=== PATIENT | female | born 1965 | race African-American/Black ===

== ENCOUNTER 2018-06-29 13:55 | Emergency (ER) | payer SELFPAY ==
[~2018-06-29] VITALS: Ht 170.2 cm; Wt 86.0 kg
[2018-06-29 18:11] VITALS: BP 170/103
[2018-06-29] MEDS ORDERED: HYDROCODONE/ACETAMINOPHEN 5/325MG TABLET PO ONE (18:15)
[2018-06-29] MEDS ORDERED: PREDNISONE 20MG TABLET PO ONE (18:15)
== END 2018-06-29 18:37 | disposition home or self-care (01) ==
LOC: ER 13:55
DX: M54.41 Lumbago with sciatica, right side (principal); G89.29 Other chronic pain; I10 Essential (primary) hypertension
CPT/HCPCS: 99283; J7512